=== PATIENT | male | born 1970 | race Hispanic/Latino ===

== ENCOUNTER 2018-03-11 03:33 | Emergency (ER) | payer MEDICAID, OTHER ==
--- NOTE | 2018-03-11 04:37 | ED PDOC ---
Lower Extremity Pain/Injury Time Seen by Provider: 03/11/18 04:01 Chief Complaint (Nursing): Lower Extremity Problem/Injury History Per: Patient History/Exam Limitations: no limitations Onset/Duration Of Symptoms: Days (2) Additional Complaint(s): 48 yo M w/ PMH of DM and morbid obesity, c/o 2 day h/o atraumatic R knee pain, worse with walking. States that he has chronic R knee pain from "meniscus" problems and has seen and orthopedic doctor in the past. Has been taking mobic with no relief. 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 Denies any fever, chills, injury, other joint pain, weakness, has no other complaints. Past Medical History Vital Signs: Last Vital Signs Temp 98.1 F 03/11/18 04:03 Pulse 87 03/11/18 04:03 Resp 18 03/11/18 04:03 BP 145/89 03/11/18 04:03 Pulse Ox 95 03/11/18 04:03 - Medical History PMH: Diabetes, HIV Denies: Kidney Stones, Chronic Kidney Disease - Family History Family History: States: Unknown Family Hx - Home Medications Home Medications: Ambulatory Orders Medication Instructions Recorded Ibuprofen [Motrin] 600 mg PO Q8 PRN #6 tab 06/28/15 Naproxen 500 mg PO BID #30 tab 03/11/18 - Allergies Allergies/Adverse Reactions: Allergies Allergy/AdvReac Type Severity Reaction Status Date / Time No Known Allergies Allergy Verified 06/28/15 16:34 Review of Systems Constitutional: Negative for: Fever, Weakness, Malaise Musculoskeletal: Positive for: Other (R knee pain). Negative for: Neck Pain, Back Pain Skin: Negative for: Rash Neurological: Negative for: Weakness, Numbness Physical Exam - Physical Exam Comments: GENERALIZED APPEARANCE: Patient is awake, alert, oriented x3 in mild painful distress. SKIN: Warm, dry; (-) cyanosis. LOWER EXTREMITY: R knee: (+) mild effusion, (+) tenderness; (+) limited range of motion secondary to pain. Ankle and foot: (-) injury. CARDIOVASCULAR: (+) distal pulse. NEUROLOGIC: (+) distal sensation. - ECG O2 Sat by Pulse Oximetry: 95 Medical Decision Making Medical Decision Making: Previous medical records reviewed, patient was seen in 2014 in this ER for R knee pain, had a normal XR of his R knee. Impression : R knee pain Plan : - XR R knee - toradol IM XR R knee : mild djd, ? mild effusion present, no fracture, no dislocation, as read by PA. X-ray results discussed with the patient in great detail. Jo wrap applied. Patient instructed to follow-up with orthopedic referral provided in 1-2 days without fail. Advised to take medication as prescribed. Rest, ice and elevate the joint. Return to the emergency room at any time for any new or worsening symptoms. Patient states he fully agrees with and understands discharge instructions. States that he agrees with the plan and disposition. Verbalized and repeated discharge instructions and plan. I have given the patient opportunity to ask any additional questions. Disposition - Clinical Impression Clinical Impression: Knee pain - Patient ED Disposition Is Patient to be Admitted: No Counseled Patient/Family Regarding: Studies Performed, Diagnosis, Need For Followup, Rx Given - Disposition Referrals: Kevon Urbina MD [Staff Provider] - Disposition: Routine/Home Disposition Time: 06:00 Condition: STABLE Additional Instructions: Thank you for letting us take care of you today. You were treated for chronic R knee pain. The emergency medical care you received today was directed at your acute symptoms. If you were prescribed any medication, please fill it and take as directed. It may take several days for your symptoms to resolve. Return to the Emergency Department if your symptoms worsen, do not improve, or if you have any other problems. Please contact call one of the physicians/clinics you have been referred to that are listed on the Patient Visit Information form that is included in your discharge packet. Bring any paperwork you were given at discharge with you along with any medications you are taking to your follow up visit. Our treatment cannot replace ongoing medical care by a primary care provider (PCP) outside of the emergency department. Thank you for allowing the [facility] team to be part of your care today. Prescriptions: Naproxen 500 mg PO BID #30 tab Instructions: Chronic Knee Pain Forms: [employer] (Hebrew) - PA / FINANCIAL AID / Resident Statement MD/DO has reviewed & agrees with the documentation as recorded.
[2018-03-11 06:24] VITALS: BP 133/62; PULSE 80; RESP 16; TEMP 97.7; O2SAT 96
--- NOTE | 2018-03-11 08:29 | RAD ---
HISTORY: pain COMPARISON: No prior FINDINGS: BONES: Normal. No fracture. JOINTS: Normal. No osteoarthritis. SOFT TISSUE: Normal. OTHER FINDINGS: None . IMPRESSION: Normal Bone Xray.
== END 2018-03-11 06:45 | disposition home or self-care (01) ==
LOC: H.ER 03:33
DX: M25.561 Pain in right knee (principal); E11.9 Type 2 diabetes mellitus without complications
CPT/HCPCS: 73560; 96372; 99285; J1885